=== PATIENT | female | born 1960 | race Caucasian/White ===

== ENCOUNTER 2017-01-29 13:35 | Emergency (ER) | payer BC, OTHER ==
[~2017-01-29] VITALS: Ht 152.4 cm; Wt 46.7 kg
--- NOTE | 2017-01-29 14:51 | REP ---
Clinical: Trauma. Fall from horse. Technique: AP, lateral, bilateral oblique and sunrise views of the right knee. Findings: No acute fracture or dislocation. Skeletal structures and joint spaces appear intact and relatively normal for age. Prepatellar and suprapatellar soft tissue swelling cannot be excluded. No obvious effusion. Impression: Swelling. No acute fracture dislocation identified. Signed by Declan Tavera MD 01/29/2017 02:42 P
[2017-01-29 16:04] VITALS: BP 113/61
== END 2017-01-29 16:00 | disposition home or self-care (01) ==
LOC: M ED 15:56
DX: S80.211A Abrasion, right knee, initial encounter (principal); S00.81XA Abrasion of other part of head, initial encounter; V80.010A Animal-rider injured by fall from or being thrown from horse in noncollision accident, initial encounter; Y92.89 Other specified places as the place of occurrence of the external cause; Y93.52 Activity, horseback riding; Y99.8 Other external cause status

== ENCOUNTER 2017-07-10 09:02 | Emergency (ER) | payer BC, OTHER ==
[~2017-07-10] VITALS: Ht 152.4 cm; Wt 49.5 kg
[2017-07-10] MEDS ORDERED: MECLIZINE 25 MG TABLET PO ONE (09:30)
[2017-07-10] MEDS ORDERED: NS 1,000 ML IV ONE (09:30)
[2017-07-10 10:06] LABS: BASO % 0.5 % (0.0-1.0); EOS # 0.1 K/mm3 (0.0-0.50); EOS % 1.3 % (0.0-3.0); LARGE UNSTAINED CELL # 0.1 K/mm3 (0.0-0.4); LARGE UNSTAINED CELL % 1.3 % (0.0-4.0); LYMPH # 1.2 K/mm3 (1.5-4.5); LYMPH % 18.9 % (24.0-44.0); MEAN CORPUSCULAR HEMOGLOBIN 30.7 pg (27.0-33.0); MEAN CORPUSCULAR VOLUME 93.3 fl (80.0-96.0); MONO # 0.2 K/mm3 (0.0-0.8); MONO % 3.2 % (0.0-5.0); NEUTROPHILS # 4.5 K/mm3 (1.8-7.7); NEUTROPHILS % 74.8 % (36.0-66.0); PLATELET COUNT, AUTOMATED 181 k/mm3 (150-450); RED CELL DISTRIBUTION WIDTH 12.7 % (11.5-14.5)
--- NOTE | 2017-07-10 10:11 | REP ---
Clinical: Vertigo . Comparison: None . Findings: The ventricles, sulci, and cisterns are normal in position and appearance. José-white differentiation is maintained. No acute intracranial hemorrhage, mass/mass effect, pathology or trauma/injury. No evidence for acute infarction. No extra-axial fluid collection. Calvarium is intact. Paranasal sinuses and mastoid air cells are clear. Impression: Normal noncontrast head CT. No evidence for acute intracranial pathology or trauma/injury. Signed by Declan Tavera MD 07/10/2017 10:02 A
[2017-07-10 10:28] LABS: ALBUMIN 3.9 GM/DL (3.2-5.2); ALBUMIN/GLOBULIN RATIO 1.11 (1.00-1.93); ALKALINE PHOSPHATASE 49 U/L (45-117); ALT/SGPT 29 U/L (12-78); ANION GAP 3 MEQ/L (8-16); AST/SGOT 23 U/L (15-37); BILIRUBIN,TOTAL 0.2 MG/DL (0.2-1.0); BLOOD UREA NITROGEN 22 MG/DL (7-18); CARBON DIOXIDE LEVEL 32 MEQ/L (21-32); CHLORIDE LEVEL 105 MEQ/L (98-107); CREATININE FOR GFR 0.66 MG/DL (0.55-1.02); GLOMERULAR FILTRATION RATE > 60.0 (>51); GLUCOSE, FASTING 101 MG/DL (70-105); POTASSIUM SERUM 4.2 MEQ/L (3.5-5.1); SODIUM LEVEL 140 MEQ/L (136-145); TOTAL PROTEIN 7.4 GM/DL (6.4-8.2)
[2017-07-10] MEDS ORDERED: MECL-68 PO (13:07)
[2017-07-10 13:38] VITALS: BP 92/62
--- NOTE | 2017-07-10 19:31 | ECGEPIP ---
Stationary ECG Study [facility] - ED Test Date: 2017-07-10 Pat Name: JAYDEN JONES Department: Room: - Gender: F [employer] Operator: amadou : 1960 Requested By: Marina Hastings Order Number: [id number] Reading MD: Shar Husain Measurements Intervals [place] Rate: 49 P: 83 MS: 184 QRS: 76 QRSD: 88 T: 82 QT: 488 QTc: 444 Interpretive Statements SINUS BRADYCARDIA POSSIBLE LAE NO PRIORS Electronically Signed On 07-10-2017 19:31:35 EDT by Shar Husain
== END 2017-07-10 13:38 | disposition home or self-care (01) ==
LOC: EDBD 09:02 → M ED 09:02
DX: H81.399 Other peripheral vertigo, unspecified ear (principal)

== ENCOUNTER → 2021-11-05 | Outpatient (CLI) | payer BC, OTHER ==
[~2021-11-05] MED LIST: MECL1TAB31 PO
[2021-11-05 13:38] LABS: ALT/SGPT 31 U/L (12-78); BILIRUBIN,TOTAL 0.4 MG/DL (0.2-1.0); BLOOD UREA NITROGEN 18 MG/DL (7-18); CALCIUM LEVEL 9.4 MG/DL (8.8-10.2); CARBON DIOXIDE LEVEL 28 MEQ/L (21-32); CHLORIDE LEVEL 106 MEQ/L (98-107); CHOLESTEROL LEVEL 286 MG/DL (<200); GLOMERULAR FILTRATION RATE > 60.0 (>45); GLUCOSE, FASTING 95 MG/DL (70-100); HDL CHOLESTEROL 88 MG/DL (>40); NON-HDL-C 198 MG/DL; POTASSIUM SERUM 4.2 MEQ/L (3.5-5.1); SODIUM LEVEL 141 MEQ/L (136-145); TRIGLYCERIDES LEVEL 84 MG/DL (<150)
[2021-11-05 13:39] LABS: LDL CHOLESTEROL 181 MG/DL (<100); TOTAL PROTEIN 7.4 GM/DL (6.4-8.2)
== END ==
LOC: M PLALAB 10:57
PROVIDERS: ATTEND Nurse Practitioner Family
DX: Z00.00 Encounter for general adult medical examination without abnormal findings (principal)

== ENCOUNTER → 2021-11-05 | Outpatient (CLI) | payer BC, OTHER | LOC: EDBD 10:05 → M WHC 10:05 | PROVIDERS: ATTEND Nurse Practitioner Family | DX: Z12.31 Encounter for screening mammogram for malignant neoplasm of breast (principal); Z80.9 Family history of malignant neoplasm, unspecified; M85.88 Other specified disorders of bone density and structure, other site ==

== ENCOUNTER → 2022-10-10 | Outpatient (REF) | payer OTHER, BC | LOC: M LAB REF 17:15 | PROVIDERS: ATTEND Nurse Practitioner Family | DX: Z01.419 Encounter for gynecological examination (general) (routine) without abnormal findings (principal); R87.615 Unsatisfactory cytologic smear of cervix | CPT/HCPCS: 87624; G0123 ==

== ENCOUNTER → 2023-10-09 | Outpatient (REF) | payer OTHER, BC ==
[~2023-10-09] MED LIST changes: +MECL-209 PO; -MECL1TAB31 PO
== END ==
LOC: M LAB REF 17:34
PROVIDERS: ATTEND Nurse Practitioner Family
DX: Z12.4 Encounter for screening for malignant neoplasm of cervix (principal); N95.2 Postmenopausal atrophic vaginitis; R87.810 Cervical high risk human papillomavirus (HPV) DNA test positive
CPT/HCPCS: 87624; G0123

== ENCOUNTER → 2024-01-02 | Outpatient (CLI) | payer MEDICARE, BC | LOC: M WHC 10:32 | PROVIDERS: ATTEND Nurse Practitioner Family | DX: Z12.31 Encounter for screening mammogram for malignant neoplasm of breast (principal) ==

== ENCOUNTER → 2024-01-05 | Outpatient (REF) | payer MEDICARE, OTHER | LOC: M PLALAB 14:44 | PROVIDERS: ATTEND Advanced Practice Midwife | DX: R87.810 Cervical high risk human papillomavirus (HPV) DNA test positive (principal); Z87.410 Personal history of cervical dysplasia ==